=== PATIENT | male | born 1955 | race Caucasian/White ===

== ENCOUNTER 2019-09-17 00:42 | Outpatient (CLI) | payer SELFPAY ==
[2019-09-17 10:44] LABS: CHOL/HDL RATIO 3.19 (0.00-4.99)
[2019-09-17 10:49] LABS: HEMOGLOBIN A1C 5.6 % (4.5-6.2)
== END 2019-09-17 23:59 | disposition home or self-care (01) ==
LOC: HW HEART 00:42
DX: Z13.6 Encounter for screening for cardiovascular disorders (principal)
CPT/HCPCS: 36415

== ENCOUNTER 2021-06-02 12:27 | Outpatient (CLI) | payer MEDICARE, OTHER ==
[~2021-06-02] VITALS: Ht 177.8 cm; Wt 95.3 kg
[2021-06-02 13:41] LABS: BASOPHILS # (AUTO) 0.1 X10'3 (0-0.2); BASOPHILS % (AUTO) 1.3 % (0-1); EOSINOPHILS # (AUTO) 0.1 X10'3 (0-0.9); EOSINOPHILS % (AUTO) 0.9 % (0-6); HEMATOCRIT 43.2 % (42.0-52.0); HEMOGLOBIN 14.6 g/dl (14.0-17.9); LYMPHOCYTES # (AUTO) 2.1 X10'3 (1.1-4.8); LYMPHOCYTES % (AUTO) 24.9 % (21-51); MEAN CORPUSCULAR HEMOGLOBIN 30.1 PG (27.0-31.0); MEAN CORPUSCULAR HGB CONC 33.8 g/dL (33.0-36.5); MEAN CORPUSCULAR VOLUME 89.1 FL (78-98); MEAN PLATELET VOLUME 8.6 FL (7.4-10.4); MONOCYTES # (AUTO) 0.9 X10'3 (0-0.9); MONOCYTES % (AUTO) 10.7 % (2-12); NEUTROPHILS # (AUTO) 5.2 X10'3 (1.8-7.7); NEUTROPHILS % (AUTO) 62.2 % (42-75); PLATELET COUNT 347 X10'3 (140-440); RED BLOOD COUNT 4.85 X10'6 (4.70-6.10); RED CELL DISTRIBUTION WIDTH 13.9 % (11.5-14.5); WHITE BLOOD COUNT 8.3 X10'3 (4.5-11.0)
[2021-06-02 13:54] LABS: PARTIAL THROMBOPLASTIN TIME 27 SECONDS (22-32)
[2021-06-02 13:55] LABS: ALANINE AMINOTRANSFERASE 29 U/L (12-78); ALBUMIN 3.4 G/DL (3.4-5.0); ALBUMIN/GLOBULIN RATIO 0.8 (1.1-1.5); ALKALINE PHOSPHATASE 68 IU/L (46-116); ANION GAP 6 (8-16); ASPARTATE AMINO TRANSFERASE 15 U/L (10-37); BILIRUBIN,TOTAL 0.5 MG/DL (0.1-1.0); BLOOD UREA NITROGEN 16 MG/DL (7-18); BUN/CREATININE RATIO 15.7 (5.4-32.0); CHLORIDE 107 MMOL/L (99-107); CREATININE 1.02 MG/DL (0.60-1.10); GLUCOSE 91 MG/DL (70-104); POTASSIUM 4.9 MMOL/L (3.5-5.1); SODIUM 142 MMOL/L (135-145); TOTAL PROTEIN 7.8 G/DL (6.4-8.2); eGFR 73 ML/MIN
[2021-06-02] MEDS ORDERED: IODIXANOL 320 MG/ML INFUS..BTL 100ML IV ONE (15:04)
[2021-06-02] MEDS ORDERED: IODIXANOL 320 MG/ML INFUS..BTL 50ML IV ONE (15:05)
[2021-06-02] MEDS ORDERED: albuterol 2.5 MG/3 ML nebule NEB ONE (16:05)
== END 2021-06-02 23:59 | disposition home or self-care (01) ==
LOC: RAD 12:27
PROVIDERS: ATTEND Internal Medicine Cardiovascular Disease
DX: K57.30 Diverticulosis of large intestine without perforation or abscess without bleeding (principal); I51.7 Cardiomegaly; I71.2 Thoracic aortic aneurysm, without rupture; I35.1 Nonrheumatic aortic (valve) insufficiency; R94.2 Abnormal results of pulmonary function studies; I65.23 Occlusion and stenosis of bilateral carotid arteries; Z20.822 Contact with and (suspected) exposure to COVID-19
CPT/HCPCS: 36415; 71046; 71275; 74174; 80053; 85025; 85610; 85730; 87635; 93005; 93880; 94060; 94727; 94729; 94760; C9803; Q9967

== ENCOUNTER 2021-07-01 07:11 | Inpatient (IN) | payer MEDICARE, OTHER ==
[2021-06-28 10:51] LABS: PRE OP INR 1.1 INR
[2021-06-28 10:55] LABS: ALBUMIN 3.6 G/DL (3.4-5.0); ALKALINE PHOSPHATASE 49 IU/L (46-116); BASOPHILS # (AUTO) 0.1 X10'3 (0-0.2); BASOPHILS % (AUTO) 1.1 % (0-1); BLOOD UREA NITROGEN 15 MG/DL (7-18); BUN/CREATININE RATIO 14.9 (5.4-32.0); CALCIUM 8.6 MG/DL (8.5-10.1); CHLORIDE 105 MMOL/L (99-107); CREATININE 1.01 MG/DL (0.60-1.10); EOSINOPHILS # (AUTO) 0.1 X10'3 (0-0.9); EOSINOPHILS % (AUTO) 1.8 % (0-6); LYMPHOCYTES # (AUTO) 2.4 X10'3 (1.1-4.8); LYMPHOCYTES % (AUTO) 35.8 % (21-51); MEAN CORPUSCULAR HEMOGLOBIN 30.1 PG (27.0-31.0); MEAN CORPUSCULAR HGB CONC 34.1 g/dL (33.0-36.5); MEAN CORPUSCULAR VOLUME 88.5 FL (78-98); MEAN PLATELET VOLUME 9.2 FL (7.4-10.4); MONOCYTES # (AUTO) 0.8 X10'3 (0-0.9); MONOCYTES % (AUTO) 11.4 % (2-12); NEUTROPHILS # (AUTO) 3.4 X10'3 (1.8-7.7); NEUTROPHILS % (AUTO) 49.9 % (42-75); PRE OP ALT 26 U/L (30-65); PRE OP ANION GAP 4 (8-16); PRE OP AST 14 U/L (10-37); PRE OP BILIRUB, TOTAL 0.7 MG/DL (0.0-1.0); PRE OP GLUCOSE 105 MG/DL (70-104); PRE OP HEMATOCRIT 43.2 % (42.0-52.0); PRE OP HEMOGLOBIN 14.7 g/dL (14.0-17.9); PRE OP PLATELET COUNT 253 X10'3 (140-440); PRE OP POTASSIUM 4.4 MMOL/L (3.4-5.1); PRE OP SODIUM 141 MMOL/L (135-145); RED BLOOD COUNT 4.88 X10'6 (4.70-6.10); RED CELL DISTRIBUTION WIDTH 13.9 % (11.5-14.5); TOTAL CARBON DIOXIDE 31.6 MMOL/L (24-32); TOTAL PROTEIN 7.2 G/DL (6.4-8.2); eGFR 73 ML/MIN
[~2021-07-01] VITALS: Ht 177.8 cm; Wt 94.6 kg
[2021-07-01] VITALS (19 sets, daily range): BP systolic 127–163; BP diastolic 81–108
[2021-07-01] MEDS: nitroPRUSSIDE (NIPRIDE) (200MCG/ML) 100ML Drip IV SCH ×2 (05:30→19:26)
[~2021-07-01 07:11] MED LIST: APIX5TAB3 PO; DIGO125T97 PO; DOCUMENT DATE & TIME OF BETA-BLOCKER PO ONE; FLEC50TA28 PO; LEVO50TA8 PO; METO-539 PO; aspirin 325mg tablet PO ONE; cefazolin/dext.iso 2gm/50ml IV ONE; famotidine 20mg tablet PO ONE; methylPREDNISolone sod succ 125mg/2ml vial ONE; ondansetron/PF 4mg/2ml inj IV PRN; phenylephrine inj 50 MG in normal saline 250ml IV soln 245 ML IV SCH; ringers solution, lacted 1,000 ML IV SCH; vancomycin 1,500 MG in NS 300ml IV soln IV ONE
[2021-07-01] MEDS ORDERED: heparin 1,000 UNITS/NS 500ml 500 ML ONE (11:05)
[2021-07-01] MEDS ORDERED: iohexol 350MG/ML 100ml bottle IV ONE (11:05)
[2021-07-01] MEDS ORDERED: iohexol 350 MG/ML 50ML vial IV ONE ×2 (11:05→11:42)
[2021-07-01] MEDS ORDERED: LIDOcaine 1% (10mg/ml)w/preservative injection 20ml MDV ONE (11:05)
[2021-07-01] MEDS ORDERED: fentaNYL/PF 50MCG/1 ML 2ML syringe ONE (11:20)
[2021-07-01] MEDS ORDERED: LIDOcaine 1%/PF 5ML 10 MG/ML VIAL ONE (11:21)
[2021-07-01] MEDS ORDERED: midazolam 1 mg/ML 2ml injection ONE ×2 (11:21→11:29)
[2021-07-01] MEDS ORDERED: propofol inj 20 ML IV ONE ×2 (11:33)
[2021-07-01] MEDS ORDERED: protamine sulf. 10mg/ml inj. IV ONE (11:43)
[2021-07-01] MEDS ORDERED: morphine 2 MG/ML inj. syringe IV PRN (12:00)
[2021-07-01] MEDS ORDERED: meperidine/PF 25mg/ml syringe IV PRN ×3 (12:00)
[2021-07-01] MEDS ORDERED: ringers solution, lacted 1,000 ML IV SCH (12:00)
[2021-07-01] MEDS ORDERED: morphine 4 MG/ML inj SYRINge IV PRN (12:00)
[2021-07-01] MEDS ORDERED: proCHLORperazine 10 MG/2 ml inj IV PRN ×2 (12:00→13:15)
[2021-07-01] MEDS ORDERED: ondansetron/PF 4mg/2ml inj IV PRN ×2 (12:00→13:15)
[2021-07-01] MEDS ORDERED: heparin 1,000unit/ml 10ml vial 10 ML ONE ×2 (12:10)
[2021-07-01] MEDS ORDERED: potassium CL 10mEq/100ml bag 100 ML IV PRN (13:15)
[2021-07-01] MEDS ORDERED: potassium Cl 20 mEq SR tablet PO PRN (13:15)
[2021-07-01] MEDS ORDERED: acetaminophen 325mg tablet PO PRN (13:15)
[2021-07-01] MEDS ORDERED: ALPRAZolam 0.25mg tablet PO PRN (13:15)
[2021-07-01] MEDS ORDERED: magnesium 4gm in 100ml NS 100 ML IV PRN (13:15)
[2021-07-01] MEDS ORDERED: diphenhydrAMINE 25mg capsule PO PRN (13:15)
[2021-07-01] MEDS ORDERED: magnesium 2GM in 50ml NS 50 ML IV PRN (13:15)
[2021-07-01] MEDS ORDERED: pantoprazole 40mg Tablet.DR PO PRN (13:15)
[2021-07-01] MEDS ORDERED: potassium Cl 40MEQ/1/2NS 520ml 520 ML IV PRN (13:15)
[2021-07-01] MEDS ORDERED: docusate sod 100mg capsule PO PRN (13:15)
[2021-07-01] MEDS ORDERED: hydrALAZINE 20mg/ml inj. IV PRN (13:15)
[2021-07-01] MEDS ORDERED: labetalol 20mg/4ml (5mg/ml) syringe IV PRN (13:15)
--- NOTE | 2021-07-01 13:25 | NUR ---
Received from OR via , accompanied by Anesthesiologist DR RUBIN and report given by Anesthesiolgist. AWAKENS TO VOICE. VITALS STABLE. BILAT GROIN CLOSURES DI. SOFT TO TOUCH. PULSES PALPABLE IN BILAT FEET.
--- NOTE | 2021-07-01 13:50 | NUR ---
GROIN CHECK REVEALED SOME BLEEDING ON THE RT GROIN. PRESSURE HELD AND COMMUNICATIONS ADVISOR NURSE CALLED.
--- NOTE | 2021-07-01 14:15 | NUR ---
RT GROIN DRESSING REPLACED AND FEMSTOP PLACED AT 55PSI.
--- NOTE | 2021-07-01 14:50 | NUR ---
RT GROIN APPEARS TO HAVE STOPED BLEEDING FEM STOP REMAINS IN PLACE.
--- NOTE | 2021-07-01 14:55 | NUR ---
Report called to receiving nurse. Transferred via BED Belongings . Special Issues communicated to receiving nurse.AWAKE AND ORIENTED. VITALS STABLE. DRESSINGS DI. SANGEETHA PAIN. TO ASCENCION RM 311 AT THIS TIME.
[2021-07-01] MEDS ORDERED: HYDROcodone/acetaminophen 5mg/325mg tablet PO PRN (15:45)
[2021-07-01] MEDS: sod chloride 0.9% 10ml flush syringe IV SCH ×2 (16:00→23:35)
[2021-07-01] MEDS: ceFAZolin 1GM/D5W- ADD-VANTAGE 50 ML IV SCH ×2 (16:42→23:35)
[2021-07-01] MEDS: normal saline 1000ml 1,000 ML IV SCH ×2 (16:43→23:15)
--- NOTE | 2021-07-01 18:00 | NUR ---
Patient in room MED 311. I have received report from Barb LITTLEJOHN and had the opportunity to ask questions and assume patient care.
--- NOTE | 2021-07-01 18:37 | NUR ---
Problems reprioritized. Patient report given, questions answered & plan of care reviewed with ERON Mistry.
[2021-07-01] MEDS: vancomycin/NS 1 GM ADD-VANTAGE 250 ML IV SCH (20:37)
[2021-07-01] MEDS: flecainide 50mg tablet PO SCH (20:38)
[2021-07-01] MEDS ORDERED: metoprolol succinate 25mg (24-HOUR) SR. Tablet PO SCH (21:00)
[2021-07-02 02:00] VITALS: BP 128/76
[2021-07-02 06:00] VITALS: BP 128/73
[2021-07-02 06:01] LABS: BASOPHILS # (AUTO) 0.1 X10'3 (0-0.2); BASOPHILS % (AUTO) 0.6 % (0-1); EOSINOPHILS % (AUTO) 0.2 % (0-6); HEMATOCRIT 40.5 % (42.0-52.0); HEMOGLOBIN 13.8 g/dl (14.0-17.9); LYMPHOCYTES # (AUTO) 1.2 X10'3 (1.1-4.8); LYMPHOCYTES % (AUTO) 11.5 % (21-51); MEAN CORPUSCULAR HEMOGLOBIN 30.1 PG (27.0-31.0); MEAN CORPUSCULAR HGB CONC 34.1 g/dL (33.0-36.5); MEAN CORPUSCULAR VOLUME 88.2 FL (78-98); MEAN PLATELET VOLUME 9.3 FL (7.4-10.4); MONOCYTES # (AUTO) 1.1 X10'3 (0-0.9); MONOCYTES % (AUTO) 10.2 % (2-12); NEUTROPHILS # (AUTO) 8.2 X10'3 (1.8-7.7); NEUTROPHILS % (AUTO) 77.5 % (42-75); PLATELET COUNT 181 X10'3 (140-440); RED BLOOD COUNT 4.59 X10'6 (4.70-6.10); RED CELL DISTRIBUTION WIDTH 14.2 % (11.5-14.5); WHITE BLOOD COUNT 10.6 X10'3 (4.5-11.0)
--- NOTE | 2021-07-02 06:13 | NUR ---
Problems reprioritized. Patient report given, questions answered & plan of care reviewed with DYAN LITTLEJOHN.
[2021-07-02 06:25] LABS: ALANINE AMINOTRANSFERASE 19 U/L (12-78); ALBUMIN 3.2 G/DL (3.4-5.0); ALBUMIN/GLOBULIN RATIO 0.9 (1.1-1.5); ALKALINE PHOSPHATASE 47 IU/L (46-116); ANION GAP 7 (8-16); ASPARTATE AMINO TRANSFERASE 18 U/L (10-37); BILIRUBIN,TOTAL 0.9 MG/DL (0.1-1.0); BLOOD UREA NITROGEN 13 MG/DL (7-18); BUN/CREATININE RATIO 14.6 (5.4-32.0); CALCIUM 8.4 MG/DL (8.5-10.1); CHLORIDE 107 MMOL/L (99-107); CREATININE 0.89 MG/DL (0.60-1.10); GLUCOSE 113 MG/DL (70-104); MAGNESIUM 1.8 MG/DL (1.5-2.4); POTASSIUM 3.6 MMOL/L (3.5-5.1); SODIUM 140 MMOL/L (135-145); TOTAL CARBON DIOXIDE 26.3 MMOL/L (24-32); TOTAL PROTEIN 6.6 G/DL (6.4-8.2); eGFR 85 ML/MIN
[2021-07-02] MEDS ORDERED: levoTHYROXINE 25mcg tablet PO SCH (07:00)
[2021-07-02] MEDS: ceFAZolin 1GM/D5W- ADD-VANTAGE 50 ML IV SCH (07:19)
[2021-07-02] MEDS: flecainide 50mg tablet PO SCH (07:20)
[2021-07-02] MEDS: sod chloride 0.9% 10ml flush syringe IV SCH (07:26)
[2021-07-02] MEDS ORDERED: metoprolol succinate 25mg (24-HOUR) SR. Tablet PO SCH (08:00)
[2021-07-02] MEDS ORDERED: digoxin 125mcg (0.125mg) tablet PO SCH (08:00)
[2021-07-02] MEDS: vancomycin/NS 1 GM ADD-VANTAGE 250 ML IV SCH (08:53)
[2021-07-02] MEDS: normal saline 1000ml 1,000 ML IV SCH (09:15)
[2021-07-02 10:00] VITALS: BP 134/81
--- NOTE | 2021-07-02 12:12 | NUR ---
Called ASTRID Montiel - left message on voicemail re: Afib and we are monitoring. Call back with any orders/questions/concerns.
[2021-07-02] MEDS ORDERED: ondansetron 4mg rapidly disintigrating tab PO PRN (14:10)
--- NOTE | 2021-07-02 14:30 | NUR ---
Per Dr Ballesteros through [facility] TAVR coordinator - ok to d/c with existing Afib. Pt is asymptomatic.
--- NOTE | 2021-07-02 15:00 | NUR ---
D/C Pt is stable for D/C per MD orders. All d/c ppwk was reviewed in detail with patient and patient . PIV's x2 were removed and patient tolerated well. All questions, comments and concerns were answered and pt verbalized understanding. All personal belongings were sent with pt and pt was rolled out in W/C to private vehicle where pt was waiting. No new RX.
== END 2021-07-02 15:00 | disposition home or self-care (01) | DRG 266 ==
LOC: PAS IN 07:11 → UNDOADMIN 07:11 → PAS IN 13:17 → MED 3N 15:10
PROVIDERS: ADMIT Internal Medicine Cardiovascular Disease; ATTEND Internal Medicine Cardiovascular Disease
PROC: B41D1ZZ Fluoroscopy of Aorta and Bilateral Lower Extremity Arteries using Low Osmolar Contrast (ICD-10-PCS; 2021-07-01)
PROC: 02RF38Z Replacement of Aortic Valve with Zooplastic Tissue, Percutaneous Approach (ICD-10-PCS; principal; 2021-07-01 11:21)
DX: I08.0 Rheumatic disorders of both mitral and aortic valves (principal); Z00.6 Encounter for examination for normal comparison and control in clinical research program; I50.23 Acute on chronic systolic (congestive) heart failure; I42.9 Cardiomyopathy, unspecified; E03.9 Hypothyroidism, unspecified; I11.0 Hypertensive heart disease with heart failure; M19.90 Unspecified osteoarthritis, unspecified site; I48.91 Unspecified atrial fibrillation; I49.5 Sick sinus syndrome; Z86.73 Personal history of transient ischemic attack (TIA), and cerebral infarction without residual deficits; Z95.0 Presence of cardiac pacemaker
CPT/HCPCS: 33361; 36415; 71045; 80053; 81003; 82948; 83735; 83880; 84443; 85025; 85347; 85610; 85730; 86885; 86900; 86901; 86920; 87081; 93005; 93308; A4618; A6258; A6449; C1756; C1760; C1769; C1894; G0378; J0360; J0690; J1644; J2250; J2370; J2405; J2704; J2720; J2930; J3010; J3370; J3490; J7030; J7040; J7050; J7120; P9016; Q9967; U0003; U0005

== ENCOUNTER 2021-07-04 13:08 | Inpatient (IN) | payer MEDICARE, OTHER ==
[~2021-07-04] VITALS: Ht 177.8 cm; Wt 95.4 kg
[~2021-07-04 13:08] MED LIST changes: -DOCUMENT DATE & TIME OF BETA-BLOCKER PO ONE; -aspirin 325mg tablet PO ONE; -cefazolin/dext.iso 2gm/50ml IV ONE; -famotidine 20mg tablet PO ONE; -methylPREDNISolone sod succ 125mg/2ml vial ONE; -ondansetron/PF 4mg/2ml inj IV PRN; -phenylephrine inj 50 MG in normal saline 250ml IV soln 245 ML IV SCH; -ringers solution, lacted 1,000 ML IV SCH; -vancomycin 1,500 MG in NS 300ml IV soln IV ONE
[2021-07-04 14:22] LABS: BASOPHILS # (AUTO) 0.1 X10'3 (0-0.2); BASOPHILS % (AUTO) 0.6 % (0-1); EOSINOPHILS % (AUTO) 0.3 % (0-6); HEMATOCRIT 41.8 % (42.0-52.0); HEMOGLOBIN 14.3 g/dl (14.0-17.9); LYMPHOCYTES # (AUTO) 1.5 X10'3 (1.1-4.8); LYMPHOCYTES % (AUTO) 12.6 % (21-51); MEAN CORPUSCULAR HEMOGLOBIN 30.2 PG (27.0-31.0); MEAN CORPUSCULAR HGB CONC 34.3 g/dL (33.0-36.5); MEAN CORPUSCULAR VOLUME 88.2 FL (78-98); MEAN PLATELET VOLUME 9.8 FL (7.4-10.4); MONOCYTES # (AUTO) 1.3 X10'3 (0-0.9); MONOCYTES % (AUTO) 11.1 % (2-12); NEUTROPHILS # (AUTO) 8.7 X10'3 (1.8-7.7); NEUTROPHILS % (AUTO) 75.4 % (42-75); PLATELET COUNT 179 X10'3 (140-440); RED BLOOD COUNT 4.74 X10'6 (4.70-6.10); RED CELL DISTRIBUTION WIDTH 13.9 % (11.5-14.5); WHITE BLOOD COUNT 11.5 X10'3 (4.5-11.0)
[2021-07-04 14:32] LABS: ALANINE AMINOTRANSFERASE 36 U/L (12-78); ALBUMIN 3.2 G/DL (3.4-5.0); ALBUMIN/GLOBULIN RATIO 0.7 (1.1-1.5); ALKALINE PHOSPHATASE 67 IU/L (46-116); ANION GAP 8 (8-16); ASPARTATE AMINO TRANSFERASE 37 U/L (10-37); BILIRUBIN,TOTAL 1.2 MG/DL (0.1-1.0); BLOOD UREA NITROGEN 13 MG/DL (7-18); BUN/CREATININE RATIO 12.7 (5.4-32.0); CALCIUM 8.9 MG/DL (8.5-10.1); CHLORIDE 105 MMOL/L (99-107); CREATININE 1.02 MG/DL (0.60-1.10); GLUCOSE 152 MG/DL (70-104); SODIUM 143 MMOL/L (135-145); TOTAL CARBON DIOXIDE 29.6 MMOL/L (24-32); TOTAL PROTEIN 7.5 G/DL (6.4-8.2); eGFR 73 ML/MIN
[2021-07-04] MEDS ORDERED: aspirin 325mg tablet PO ONE (14:35)
[2021-07-04] MEDS ORDERED: diltiazem 5mg/ml 5ml inj. IV ONE (15:15)
[2021-07-04 15:22] LABS: PARTIAL THROMBOPLASTIN TIME 28 SECONDS (22-32)
[2021-07-04 15:31] LABS: D-DIMER 0.49 MG/L FEU (0-0.50)
[2021-07-04] MEDS: diltiazem-NS 100mg/100ml 100 ML IV SCH (15:50)
[2021-07-04] MEDS ORDERED: potassium CL 10mEq/100ml bag 100 ML IV PRN (16:05)
[2021-07-04] MEDS ORDERED: potassium Cl 20 mEq SR tablet PO PRN ×2 (16:05)
[2021-07-04] MEDS ORDERED: magnesium 4gm in 100ml NS 100 ML IV PRN (16:05)
[2021-07-04] MEDS ORDERED: magnesium Cl slow-release 64mg tablet PO PRN (16:05)
[2021-07-04] MEDS ORDERED: diltiazem-D5W 125mg/125ml 125 ML IV SCH (16:05)
[2021-07-04] MEDS ORDERED: magnesium 2GM in 50ml NS 50 ML IV PRN (16:05)
[2021-07-04] MEDS ORDERED: ondansetron/PF 4mg/2ml inj IV PRN (16:05)
[2021-07-04 16:40] LABS: MAGNESIUM 2.1 MG/DL (1.5-2.4); POTASSIUM 3.8 MMOL/L (3.5-5.1)
--- NOTE | 2021-07-04 17:43 | NUR ---
states, when paramedics picked up lucy is temp 101.3
--- NOTE | 2021-07-04 17:46 | NUR ---
PAGED DR. GARZA RE; TEMP 100.2 AND PREVIOUS TEMP PRIOR TO ARRIVAL TO ER 101.3
[2021-07-04] MEDS: acetaminophen 325mg tablet PO PRN (18:05)
[2021-07-04] MEDS ORDERED: iohexol 350MG/ML 100ml bottle IV ONE (18:10)
[2021-07-04 19:30] VITALS: BP 116/81
[2021-07-04 20:00] VITALS: BP 116/81
[2021-07-04] MEDS: K and/or MAG REPLACEMENT MC SCH (20:00)
[2021-07-04 21:00] VITALS: BP 87/50
--- NOTE | 2021-07-04 21:10 | NUR ---
Pt arrived to unit at 1930. Pt in no apparent distress and report recieved from Serenity LITTLEJOHN. Pt vitals signs took and resting in bed.
[2021-07-04 22:00] VITALS: BP_SYST 103; BP_SYST 88; BP_DIAS 55; BP_DIAS 69
[2021-07-04 23:00] VITALS: BP 106/88
[2021-07-05] VITALS (10 sets, daily range): BP systolic 97–142; BP diastolic 50–95
--- NOTE | 2021-07-05 01:07 | NUR ---
Paged Dr. López per med reconciliation to be completed. PAGER ID: [phone] MESSAGE: Tyson Mayes 3021, Pt has med rec done of home medications. Need them to be continued here thank you
[2021-07-05 05:01] LABS: BASOPHILS # (AUTO) 0.1 X10'3 (0-0.2); BASOPHILS % (AUTO) 0.7 % (0-1); EOSINOPHILS # (AUTO) 0.1 X10'3 (0-0.9); EOSINOPHILS % (AUTO) 1.1 % (0-6); HEMATOCRIT 39.3 % (42.0-52.0); HEMOGLOBIN 13.5 g/dl (14.0-17.9); LYMPHOCYTES # (AUTO) 1.7 X10'3 (1.1-4.8); LYMPHOCYTES % (AUTO) 15.8 % (21-51); MEAN CORPUSCULAR HEMOGLOBIN 30.1 PG (27.0-31.0); MEAN CORPUSCULAR HGB CONC 34.3 g/dL (33.0-36.5); MEAN CORPUSCULAR VOLUME 87.8 FL (78-98); MEAN PLATELET VOLUME 9.8 FL (7.4-10.4); MONOCYTES # (AUTO) 1.5 X10'3 (0-0.9); MONOCYTES % (AUTO) 13.8 % (2-12); NEUTROPHILS # (AUTO) 7.4 X10'3 (1.8-7.7); NEUTROPHILS % (AUTO) 68.6 % (42-75); PLATELET COUNT 195 X10'3 (140-440); RED BLOOD COUNT 4.48 X10'6 (4.70-6.10); WHITE BLOOD COUNT 10.7 X10'3 (4.5-11.0)
--- NOTE | 2021-07-05 06:14 | NUR ---
Problems reprioritized. Patient report given, questions answered & plan of care reviewed with Marisel LITTLEJOHN.
[2021-07-05] MEDS: diltiazem-NS 100mg/100ml 100 ML IV SCH (06:29)
[2021-07-05 07:23] LABS: ALBUMIN 2.6 G/DL (3.4-5.0); ANION GAP 8 (8-16); BLOOD UREA NITROGEN 14 MG/DL (7-18); BUN/CREATININE RATIO 16.3 (5.4-32.0); CALCIUM 8.3 MG/DL (8.5-10.1); CHLORIDE 107 MMOL/L (99-107); CREATININE 0.86 MG/DL (0.60-1.10); GLUCOSE 105 MG/DL (70-104); MAGNESIUM 2.1 MG/DL (1.5-2.4); POTASSIUM 3.8 MMOL/L (3.5-5.1); SODIUM 143 MMOL/L (135-145); TOTAL CARBON DIOXIDE 28.1 MMOL/L (24-32); eGFR 88 ML/MIN
[2021-07-05] MEDS: K and/or MAG REPLACEMENT MC SCH ×2 (08:00→20:00)
--- NOTE | 2021-07-05 11:04 | NUR ---
PAGER ID: [phone] MESSAGE: Patient Tyson Remark room 3022 states he has pain, may I have something other than tylenol for him? Thanks Marisel ext [phone]
--- NOTE | 2021-07-05 13:03 | NUR ---
PAGER ID: [phone] MESSAGE: Sherlyn Becerril Room 3021's Med Rec has been left open. Can you please complete it? Thanks Marisel ext [phone]
[2021-07-05] MEDS ORDERED: digoxin 125mcg (0.125mg) tablet PO SCH (13:10)
[2021-07-05] MEDS: digoxin 125mcg (0.125mg) tablet PO SCH (15:39)
[2021-07-05 15:41] LABS: POTASSIUM 3.6 MMOL/L (3.5-5.1)
[2021-07-05] MEDS: apixaban 5mg tablet PO SCH (16:11)
--- NOTE | 2021-07-05 18:50 | NUR ---
Problems reprioritized. Patient report given, questions answered & plan of care reviewed with Jesus LITTLEJOHN.
[2021-07-05] MEDS ORDERED: metoprolol succinate 25mg (24-HOUR) SR. Tablet PO SCH ×2 (19:48→21:00)
[2021-07-05] MEDS: acetaminophen 325mg tablet PO PRN (19:58)
[2021-07-05] MEDS: flecainide 50mg tablet PO SCH (19:59)
[2021-07-05] MEDS ORDERED: apixaban 5mg tablet PO SCH ×2 (20:00)
[2021-07-05] MEDS ORDERED: flecainide 50mg tablet PO SCH (20:00)
[2021-07-06 06:00] VITALS: BP 134/95
[2021-07-06 06:54] LABS: HEMATOCRIT 39.1 % (42.0-52.0); HEMOGLOBIN 13.4 g/dl (14.0-17.9); MEAN CORPUSCULAR HEMOGLOBIN 29.9 PG (27.0-31.0); MEAN CORPUSCULAR HGB CONC 34.4 g/dL (33.0-36.5); PLATELET COUNT 231 X10'3 (140-440); RED BLOOD COUNT 4.49 X10'6 (4.70-6.10); RED CELL DISTRIBUTION WIDTH 14.1 % (11.5-14.5); WHITE BLOOD COUNT 10.8 X10'3 (4.5-11.0)
[2021-07-06 06:55] LABS: BASOPHILS # (AUTO) 0.1 X10'3 (0-0.2); BASOPHILS % (AUTO) 0.7 % (0-1); EOSINOPHILS # (AUTO) 0.3 X10'3 (0-0.9); EOSINOPHILS % (AUTO) 2.5 % (0-6); LYMPHOCYTES # (AUTO) 1.8 X10'3 (1.1-4.8); LYMPHOCYTES % (AUTO) 16.9 % (21-51); MONOCYTES # (AUTO) 1.3 X10'3 (0-0.9); MONOCYTES % (AUTO) 12.1 % (2-12); NEUTROPHILS # (AUTO) 7.3 X10'3 (1.8-7.7); NEUTROPHILS % (AUTO) 67.8 % (42-75)
[2021-07-06] MEDS ORDERED: levoTHYROXINE 25mcg tablet PO SCH (07:00)
[2021-07-06 07:20] LABS: ALBUMIN 2.6 G/DL (3.4-5.0); ANION GAP 7 (8-16); BLOOD UREA NITROGEN 15 MG/DL (7-18); CALCIUM 8.3 MG/DL (8.5-10.1); CHLORIDE 106 MMOL/L (99-107); CREATININE 0.88 MG/DL (0.60-1.10); GLUCOSE 105 MG/DL (70-104); MAGNESIUM 2.1 MG/DL (1.5-2.4); POTASSIUM 3.7 MMOL/L (3.5-5.1); SODIUM 142 MMOL/L (135-145); TOTAL CARBON DIOXIDE 29.3 MMOL/L (24-32); eGFR 86 ML/MIN
--- NOTE | 2021-07-06 07:43 | NUR ---
PAGER ID: [phone] MESSAGE: Patient Tyson Remark room 3021 has complaints of chest wall pain and I have no pain meds ordered. Also progress not states that Wilberto planned to DC cardizem drip but its still active BP 134/95 HR 96. Please advise Marisel ext [phone]
[2021-07-06] MEDS: flecainide 50mg tablet PO SCH (07:51)
[2021-07-06] MEDS: apixaban 5mg tablet PO SCH (07:53)
[2021-07-06] MEDS: digoxin 125mcg (0.125mg) tablet PO SCH (07:53)
[2021-07-06] MEDS ORDERED: non-formulary drug (Levothyroxine Sodium 1 TAB) PO SCH (08:00)
[2021-07-06] MEDS ORDERED: acetaminophen 325mg tablet PO PRN (08:45)
[2021-07-06] MEDS ORDERED: potassium Cl 20 mEq SR tablet PO STA (09:18)
[2021-07-06] MEDS ORDERED: magnesium 4gm in 100ml NS 100 ML IV PRN (09:20)
[2021-07-06] MEDS ORDERED: potassium Cl 20mEq/100mL bag 100 ML IV PRN (09:20)
[2021-07-06] MEDS ORDERED: potassium Cl 40MEQ/1/2NS 520ml 520 ML IV PRN (09:20)
[2021-07-06] MEDS: magnesium 2GM in 50ml NS 50 ML IV ONE ×2 (09:20→10:31)
[2021-07-06] MEDS ORDERED: magnesium 2GM in 50ml NS 50 ML IV PRN (09:20)
[2021-07-06] MEDS ORDERED: potassium CL 10mEq/100ml bag 100 ML IV PRN (09:20)
[2021-07-06] MEDS ORDERED: potassium Cl 20 mEq SR tablet PO PRN (09:20)
[2021-07-06] MEDS ORDERED: potassium Cl 40MEQ/250ML bag 250 ML IV PRN (09:20)
[2021-07-06] MEDS ORDERED: furosemide 20 MG/2 ML vial IV SCH (10:50)
[2021-07-06 11:00] VITALS: BP 128/100
[2021-07-06] MEDS ORDERED: MAGN400T29 PO (11:39)
[2021-07-06] MEDS ORDERED: POTA-82 PO (11:39)
--- NOTE | 2021-07-06 11:48 | NUR ---
PAGER ID: [phone] MESSAGE: Can we change IV meds to PO on Tyson Remark Room 3021? 3 RNs have been unsuccessful placing the IV. Please advise Marisel ext [phone]
--- NOTE | 2021-07-06 13:26 | NUR ---
PAGER ID: [phone] MESSAGE: Sherlyn Mehta Remark Room 3021 ambulated 300 ft with PT, HR reached the 130's. Please advise Marisel ext [phone]
[2021-07-06] MEDS ORDERED: FURO-150 PO (14:17)
[2021-07-06] MEDS ORDERED: ondansetron 4mg rapidly disintigrating tab PO PRN (15:15)
--- NOTE | 2021-07-06 15:38 | NUR ---
Patient stable for discharge per Dr. López. Tele DC'd, PIV DC'd with cannula intact. Patient verbalized understanding of discharge instructions, importance of follow up and new medication regimen. New prescriptions were electronically transmitted to [facility] on [address] [place]. Patient and his belongings were escorted to the lobby for transport home by his spouse in the family vehicle.
[2021-07-06] MEDS ORDERED: potassium Cl 20 mEq SR tablet PO SCH (20:00)
[2021-07-06] MEDS ORDERED: K and/or MAG REPLACEMENT MC SCH (20:00)
[2021-07-06] MEDS ORDERED: magnesium Cl slow-release 64mg tablet PO SCH (20:00)
== END 2021-07-06 15:19 | disposition home or self-care (01) | DRG 310 ==
LOC: ER 13:08 → ED HOLD 16:05 → PCU 3S 19:20
PROVIDERS: ADMIT Internal Medicine; ATTEND Internal Medicine
PROC: B32T1ZZ Computerized Tomography (CT Scan) of Left Pulmonary Artery using Low Osmolar Contrast (ICD-10-PCS; principal; 2021-07-04)
PROC: B3201ZZ Computerized Tomography (CT Scan) of Thoracic Aorta using Low Osmolar Contrast (ICD-10-PCS; 2021-07-04)
PROC: B32S1ZZ Computerized Tomography (CT Scan) of Right Pulmonary Artery using Low Osmolar Contrast (ICD-10-PCS; 2021-07-04)
DX: I48.0 Paroxysmal atrial fibrillation (principal); I49.5 Sick sinus syndrome; I10 Essential (primary) hypertension; I71.2 Thoracic aortic aneurysm, without rupture; E03.9 Hypothyroidism, unspecified; R07.89 Other chest pain; Z95.0 Presence of cardiac pacemaker; Z79.01 Long term (current) use of anticoagulants; Z79.899 Other long term (current) drug therapy; Z95.2 Presence of prosthetic heart valve
CPT/HCPCS: 36415; 71045; 71275; 80048; 80053; 80162; 83605; 83735; 83880; 84132; 84484; 85025; 85379; 85610; 85730; 87040; 87081; 93005; 93306; 96365; 96376; 97161; 97530; 99285; G0378; J3475; J3490; Q9967